=== PATIENT | female | born 1970 | race African-American/Black ===

== ENCOUNTER 2017-04-05 03:49 | Emergency (ER) | payer SELFPAY ==
[~2017-04-05] VITALS: Ht 167.6 cm; Wt 80.0 kg
[~2017-04-05 03:49] MED LIST: DEPA500T3 PO; DICL75 PO; [UNRECOGNIZED DRUG - CODE] IM
[2017-04-05 03:50] VITALS: BP 138/66; PULSE 78; RESP 16; TEMP 99.2; O2SAT 100
--- NOTE | 2017-04-05 04:24 | PD ---
HPI Chief Complaint: Chest Pain Time Seen by Provider: 03:54 Travel History International Travel<30 days: No Contact w/Intl Traveler<30days: No Traveled to known affect area: No History of Present Illness HPI The patient is a 46 year old female who presents to the [facility] emergency department with a history of left chest pain that she reports began 2 hours ago while she was at work. She reports the pain is sharp and constant. She denies having any trauma or injury to the area. She reports that the area of tenderness is over a lump in her breast. She reports that she's had that lump in her breast for years. She reports that it has grown with time. She reports that it was benign, however she denies having a biopsy. She reports that she last had a mammogram done of the left breast 5 years ago. She denies having any fevers or chills, cough or congestion. She denies having any diaphoresis, nausea vomiting, or shortness of breath. She denies having a primary care physician. She reports that she is uninsured and that's why she has not followed up to have another mammogram done. On review of systems otherwise, the patient denies having any night sweats, unexplained weight loss, neck pain, abdominal pain, diarrhea, urinary symptoms, or neurologic symptoms. LMP: End of February. COUNT INCLUDES THE [facility] Past Medical History Narrative Medical The patient's past medical history is significant for depression, asthma, polycystic kidney disease. Asthma: Yes Bipolar Disorder: Yes Anxiety: Yes Depression: Yes Diminished Hearing: No Genitourinary: Yes (POLYCYSTIC KIDNEY DISEASE) Psychiatric: Yes (DEPRESSION) Respiratory: Yes (ASTHMA) Schizophrenia: Yes Tetanus Vaccination: Unknown ?: Not LMP: 03-29-17 Menopausal: No : 3 Para: 4 : 1 Tubal Ligation: Yes Past Surgical History Narrative Surgical The patient's past surgical history is significant for bilateral tubal ligation. Surgical History: No Previous Surgery Social History Alcohol Use: No Tobacco Use: Yes (one half pack per day) Substance Use: No Allergies-Medications (Allergen,Severity, Reaction): Coded Allergies: No Known Allergies (Verified , 04/05/17) Reported Meds & Prescriptions Reported Meds & Active Scripts Active Reported Girma Nogueira Pre-filled DCS (Aripiprazole) 300 Mg Inj 300 Mg IM Q30D *For intramuscular use only* Review of Systems Except as stated in HPI: all other systems reviewed are Neg General / Constitutional: No: Fever Eyes: No: Visual changes HENT: No: Headaches Cardiovascular: No: Chest Pain or Discomfort Respiratory: No: Shortness of Breath Gastrointestinal: No: Nausea, Vomiting, Diarrhea, Abdominal Pain Genitourinary: No: Dysuria Musculoskeletal: No: Pain Skin: No Rash Neurologic: No: Weakness Psychiatric: No: Depression Endocrine: No: Polydipsia Hematologic/Lymphatic: No: Easy Bruising Physical Exam Narrative General: The patient is well-developed well-nourished female in no acute distress. Head and Neck exam: Head is normocephalic atraumatic. Eyes: EOMI, pupils are equal round and reactive to light. Nose: Midline septum with pink mucous membranes Mouth: Dentition unremarkable. Moist mucus membranes. Posterior oropharynx is not erythematous. No tonsillar hypertrophy. Uvula midline. Airway patent. Neck: No palpable lymphadenopathy. No nuchal rigidity. No thyromegaly. Cardiovascular: Regular rate and rhythm without murmurs, gallops, or rubs. No pulse deficit to the extremities and simultaneous auscultation and palpation of her radial artery. Breast examination: The patient is noted on examination of the right breast to have no masses, no nipple discharge, orange peel quality to the skin, or nipple inversion. The patient on examination of her left breast is noted to have at approximately 12 to 3 o'clock position a 6 x 6 cm mass that is freely mobile and tender to palpation. There is no overlying erythema, edema, pointing, or other rash. The patient has no axillary lymphadenopathy. The patient has no nipple discharge, nipple inversion, orange peel quality to the skin. Lungs: Clear to auscultation bilaterally. No wheezes, rhonchi, or rales. Abdomen: Soft, without tenderness to palpation in all 4 quadrants of the abdomen. No guarding, rebound, or rigidity. Normal bowel sounds are audible. No tenderness on palpation of McBurney's point. Extremities: No clubbing, cyanosis, or edema. 2+ pulses in all 4 extremities. Back: No costovertebral angle tenderness to palpation. Neurologic Exam: Grossly nonfocal. Skin Exam: No rash noted. Intact skin that is warm and dry. Data Data Last Documented VS Vital Signs Date Time Temp Pulse Resp B/P (MAP) Pulse Ox O2 Delivery O2 Flow Rate FiO2 04/05/17 04:25 100 Nasal Cannula 2.00 04/05/17 03:50 99.2 78 16 Orders Orders Mandatory Outpatient Referral (04/05/17 04:08) Electrocardiogram (04/05/17 04:08) Complete Blood Count With Diff (04/05/17 04:08) Basic Metabolic Panel (Bmp) (04/05/17 04:08) Creatine Kinase (Cpk) (04/05/17 04:08) Ckmb (Isoenzyme) Profile (04/05/17 04:08) Troponin I (04/05/17 04:08) C-Reactive Protein (Crp) (04/05/17 04:08) Chest, Single Ap (04/05/17 04:08) Iv Access Insert/Monitor (04/05/17 04:08) Ecg Monitoring (04/05/17 04:08) Oximetry (04/05/17 04:08) CKMB (04/05/17 04:20) CKMB% (04/05/17 04:20) Us Breast Unilateral (04/05/17 04:54) Sodium Chlor 0.9% 1000 Ml Inj (Ns 1000 M (04/05/17 06:00) Ketorolac Inj (Toradol Inj) (04/05/17 06:00) Labs Laboratory Tests Test 04/05/17 04:20 White Blood Count 9.9 TH/MM3 Red Blood Count 4.01 MIL/MM3 Hemoglobin 10.6 GM/DL Hematocrit 31.8 % Mean Corpuscular Volume 79.3 FL Mean Corpuscular Hemoglobin 26.5 PG Mean Corpuscular Hemoglobin Concent 33.5 % Red Cell Distribution Width 19.1 % Platelet Count 231 TH/MM3 Mean Platelet Volume 9.9 FL Neutrophils (%) (Auto) 68.3 % Lymphocytes (%) (Auto) 26.7 % Monocytes (%) (Auto) 4.3 % Eosinophils (%) (Auto) 0.1 % Basophils (%) (Auto) 0.6 % Neutrophils # (Auto) 6.8 TH/MM3 Lymphocytes # (Auto) 2.7 TH/MM3 Monocytes # (Auto) 0.4 TH/MM3 Eosinophils # (Auto) 0.0 TH/MM3 Basophils # (Auto) 0.1 TH/MM3 CBC Comment DIFF FINAL Differential Comment Blood Urea Nitrogen 13 MG/DL Creatinine 0.92 MG/DL Random Glucose 95 MG/DL Calcium Level 8.4 MG/DL Sodium Level 137 MEQ/L Potassium Level 4.0 MEQ/L Chloride Level 105 MEQ/L Carbon Dioxide Level 26.4 MEQ/L Anion Gap 6 MEQ/L Estimat Glomerular Filtration Rate 80 ML/MIN Total Creatine Kinase 914 U/L Creatine Kinase MB 9.3 NG/ML Creatine Kinase MB % 1.0 % Troponin I LESS THAN 0.02 NG/ML C-Reactive Protein 0.42 MG/DL MDM Medical Decision Making Medical Screen Exam Complete: Yes Emergency Medical Condition: Yes Medical Record Reviewed: Yes Interpretation(s) Last Impressions Breast Ultrasound 04/05/17 0454 Signed Impressions: Service Date/Time: March 04:42 - CONCLUSION: 1. Apparent 3.2 x 4.2 x 2.4 cm simple appearing macrocyst in the 1: 2. 00 position of the left breast. Braulio Chou MD Chest X-Ray 04/05/17 0408 Signed Impressions: Service Date/Time: March 04:36 - CONCLUSION: 1. No acute cardiopulmonary disease. Braulio Chou MD Differential Diagnosis Fibroadenoma, versus breast cancer, versus abscess, versus breast cyst Narrative Course During the course of the patients emergency department visit, the patients history, examination, and differential diagnosis were reviewed with the patient. The patient had IV access obtained and blood work sent for analysis. The patient was placed on a steel loader with oximetry and blood pressure monitoring. An ECG was done on arrival. The patient's ECG reveals a sinus rhythm heart rate of 78, no acute ST segment elevation or depression, QRS duration is 86 ms, QTC 429 ms. The patient was initially provided Toradol 15 mg IV for pain and normal saline 1 L IV fluid bolus. The patients laboratory studies were reviewed and remarkable for a white count of 9.9, hemoglobin 10.6, platelets 231 with a normal differential. CMP is remarkable for GFR of 80, calcium 8.4, CPK 914, CK-MB 1.0, troponin I less than 0.02, C-reactive protein 0.42. Radiology studies were reviewed and remarkable for an ultrasound of the breast reveals an apparent 3 x 2 x 4.2 x 2.4 simple appearing macrocystic in the 2 o' clock position of the left breast. Chest x-ray shows no acute cardiopulmonary disease. The patient will be discharged home with a mandatory follow-up with the breast clinic. The patient was given an outpatient lab slip for a mammogram. There are no signs of infection. The patient was instructed regarding the importance of staying well-hydrated. The patient is resting comfortably and feels better, is alert and in no distress. The patients results and examination findings were discussed with the patient. The repeat examination is unremarkable and benign. The history, exam, diagnostic testing, and current condition do not suggest any significant pathology to warrant further testing, continued ED treatment, admission, or surgical evaluation at this point. The vital signs have been stable. The patient does not have uncontrollable pain, intractable vomiting, or other significant symptoms. The patient's condition is stable and appropriate for discharge. The patient will pursue further outpatient evaluation with a primary care physician or other designated or consulting physician as indicated in the discharge instructions. The patient expressed understanding and was agreeable with this plan. Diagnosis Primary Impression: Cyst of left breast Additional Impression: Breast tenderness in female Referrals: Jaiden Mock MD [facility] Patient Instructions: Breast Mass (ED), General Instructions Med/Other Pt SpecificInfo: No Change to Meds Disposition: 01 DISCHARGE HOME Condition: Stable Radha Eckert MD Apr 05, 2017 04:24
[2017-04-05 04:25] VITALS: O2SAT 100
[2017-04-05 04:36] LABS: AUTOMATED NEUTROPHIL # 6.8 TH/MM3 (1.8-7.7); BASOPHIL # 0.1 TH/MM3 (0-0.2); BASOPHIL % 0.6 % (0.0-2.0); EOSINOPHIL % 0.1 % (0.0-4.0); HEMATOCRIT 31.8 % (35.0-46.0); HEMO FLAGS DIFF FINAL; LYMPH % 26.7 % (9.0-44.0); LYMPHOCYTE # 2.7 TH/MM3 (1.0-4.8); MEAN CELL VOLUME 79.3 FL (80.0-100.0); MEAN CORPUSCULAR HEMOGLOBIN 26.5 PG (27.0-34.0); MEAN CORPUSCULAR HGB CONC 33.5 % (32.0-36.0); MONO % 4.3 % (0.0-8.0); NEUT % 68.3 % (16.0-70.0); PLATELET COUNT 231 TH/MM3 (150-450); RED BLOOD COUNT 4.01 MIL/MM3 (4.00-5.30); RED CELL DISTRIBUTION WIDTH 19.1 % (11.6-17.2); WHITE BLOOD COUNT 9.9 TH/MM3 (4.0-11.0)
--- NOTE | 2017-04-05 04:43 | RADRPT ---
EXAM DATE/TIME: 04/05/2017 04:36 [facility] COMPARISON: CHEST SINGLE AP, February 26, 2016, 19:16. INDICATIONS : Chest pain. MEDICAL HISTORY : None. SURGICAL HISTORY : None. ENCOUNTER: Initial ACUITY: 1 day PAIN SCORE: 7/10 LOCATION: Bilateral chest FINDINGS: A single view of the chest demonstrates the lungs to be symmetrically aerated without evidence of mas s, infiltrate or effusion. The cardiomediastinal contours are unremarkable. Osseous structures are intact. CONCLUSION: 1. No acute cardiopulmonary disease. Braulio Chou MD on April 05, 2017 at 4:40 Board Certified Radiologist. This report was verified electronically.
[2017-04-05 04:52] LABS: ANION GAP 6 MEQ/L (5-15); BICARBONATE 26.4 MEQ/L (21.0-32.0); BLOOD UREA NITROGEN 13 MG/DL (7-18); CHLORIDE 105 MEQ/L (98-107); GLOMERULAR FILTRATION RATE 80 ML/MIN (>89); SODIUM (NA) 137 MEQ/L (136-145)
[2017-04-05 04:56] LABS: CREATINE KINASE 914 U/L (26-192)
--- NOTE | 2017-04-05 05:05 | RADRPT ---
EXAM DATE/TIME: 04/05/2017 04:42 [facility] COMPARISON: No previous studies available for comparison. INDICATIONS : Left breast pain. MEDICAL HISTORY : Left breast pain. SURGICAL HISTORY : Tubal ligation. ENCOUNTER: Initial ACUITY: 1 day PAIN SCORE: 8/10 LOCATION: Left breast. FINDINGS: There is an anechoic well-circumscribed cystic lesion with smooth theodore in the 1: 00 position of the left breast. This measures 3.2 x 4.2 x 2.4 cm. No significant associated hyperemia or nodule or vascularity. CONCLUSION: 1. Apparent 3.2 x 4.2 x 2.4 cm simple appearing macrocyst in the 1: 2. 00 position of the left breast. Braulio Chou MD on April 05, 2017 at 5:00 Board Certified Radiologist. This report was verified electronically.
[2017-04-05 05:09] LABS: CKMB 9.3 NG/ML (0.5-3.6)
[2017-04-05] MEDS ORDERED: KETOROLAC TROMETHAMINE 30 MG/ML (IVP) VIAL IV PUSH ONE (06:00)
[2017-04-05] MEDS ORDERED: SODIUM CHLOR 0.9% 1000 ML INJ 1,000 ML IV ONE (06:00)
--- NOTE | 2017-04-05 12:46 | EKG ---
Date Performed: 04/05/2017 Time Performed: 04:06:40 PTAGE: 46 years EKG: Sinus rhythm NORMAL ECG PREVIOUS TRACING : 02/26/2016 19.28 DOCTOR: Adan Palafox Interpretating Date/Time 04/05/2017 12:43:39
== END 2017-04-05 08:19 | disposition home or self-care (01) ==
LOC: NEPC 03:49
DX: N60.02 Solitary cyst of left breast (principal); N64.4 Mastodynia; F17.200 Nicotine dependence, unspecified, uncomplicated; Z87.09 Personal history of other diseases of the respiratory system; Z86.59 Personal history of other mental and behavioral disorders; Z87.448 Personal history of other diseases of urinary system
CPT/HCPCS: 71010; 76642; 80048; 82550; 82552; 84484; 85025; 86140; 93005; 96374; 99285; J1885; J7030

== ENCOUNTER 2017-06-27 16:02 | Emergency (ER) | payer SELFPAY ==
[~2017-06-27] VITALS: Ht 165.1 cm; Wt 72.7 kg
[~2017-06-27 16:02] MED LIST changes: -DEPA500T3 PO; -DICL75 PO
[2017-06-27 16:03] VITALS: BP 110/58; PULSE 73; RESP 16; TEMP 99; O2SAT 97
[2017-06-27 16:57] LABS: AUTOMATED NEUTROPHIL # 10.4 TH/MM3 (1.8-7.7); BASOPHIL # 0.1 TH/MM3 (0-0.2); BASOPHIL % 0.4 % (0.0-2.0); EOSINOPHIL # 0.1 TH/MM3 (0-0.4); EOSINOPHIL % 0.5 % (0.0-4.0); HEMATOCRIT 32.5 % (35.0-46.0); HEMO FLAGS DIFF FINAL; LYMPH % 16.7 % (9.0-44.0); LYMPHOCYTE # 2.3 TH/MM3 (1.0-4.8); MEAN CELL VOLUME 80.1 FL (80.0-100.0); MEAN CORPUSCULAR HEMOGLOBIN 26.1 PG (27.0-34.0); MEAN CORPUSCULAR HGB CONC 32.6 % (32.0-36.0); MONO % 6.9 % (0.0-8.0); NEUT % 75.5 % (16.0-70.0); PLATELET COUNT 254 TH/MM3 (150-450); RED BLOOD COUNT 4.06 MIL/MM3 (4.00-5.30); RED CELL DISTRIBUTION WIDTH 19.8 % (11.6-17.2); WHITE BLOOD COUNT 13.7 TH/MM3 (4.0-11.0)
[2017-06-27 17:11] LABS: APTT (PATIENT) 24.9 SEC (24.3-30.1); INTERNATIONAL NORMALIZED RATIO 0.9 RATIO; PROTHROMBIN TIME - PATIENT 10.3 SEC (9.8-11.6)
[2017-06-27 17:12] LABS: MAGNESIUM 2.1 MG/DL (1.5-2.5)
--- NOTE | 2017-06-27 17:16 | RADRPT ---
EXAM DATE/TIME: 06/27/2017 16:56 [facility] COMPARISON: CHEST SINGLE AP, April 05, 2017, 4:36. INDICATIONS : Dizziness and low blood pressure MEDICAL HISTORY : None. SURGICAL HISTORY : None. ENCOUNTER: Initial ACUITY: 1 day PAIN SCORE: 0/10 LOCATION: chest FINDINGS: PA and lateral views of the chest demonstrate the lungs to be symmetrically aerated without evidence of mass, infiltrate or effusion. The cardiomediastinal contours are unremarkable. Osseous structure s are intact. CONCLUSION: 1. No acute cardiopulmonary findings. Sahil Hampton MD on June 27, 2017 at 17:11 Board Certified Radiologist. This report was verified electronically.
[2017-06-27 17:21] LABS: POTASSIUM 4.1 MEQ/L (3.5-5.1)
--- NOTE | 2017-06-27 18:39 | PD ---
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 Said she felt sweaty but felt better after sitting down. Has been having a few days of nonbloody diarrhea. Had fever 2 or 3 days ago. Denies any chest pain, sob, n/v, abdominal pain, focal weakness or numbness. PFSH Past Medical History Medical History: Denies Significant Hx Asthma: Yes Bipolar Disorder: Yes Anxiety: Yes Depression: Yes Diminished Hearing: No Genitourinary: Yes (POLYCYSTIC KIDNEY DISEASE) Psychiatric: Yes (DEPRESSION) Respiratory: Yes (ASTHMA) Schizophrenia: Yes ?: Not Menopausal: No : 3 Para: 4 : 1 Tubal Ligation: Yes Past Surgical History Surgical History: No Previous Surgery Social History Alcohol Use: No Tobacco Use: No Substance Use: No Allergies-Medications (Allergen,Severity, Reaction): Coded Allergies: No Known Allergies (Verified , 04/05/17) Reported Meds & Prescriptions Reported Meds & Active Scripts Active Reported Abilifclay Maintena Pre-filled DCS (Aripiprazole) 300 Mg Inj 300 Mg IM Q30D *For intramuscular use only* Review of Systems Except as stated in HPI: all other systems reviewed are Neg Physical Exam Narrative GENERAL: 46yo F not in distress. SKIN: Focused skin assessment warm/dry. HEAD: Atraumatic. Normocephalic. EYES: Pupils equal and round. EOMI. ENT: No nasal bleeding or discharge. Mucous membranes pink and moist. NECK: Trachea midline. No JVD. CARDIOVASCULAR: Regular rate and rhythm. No murmur appreciated. RESPIRATORY: No accessory muscle use. Clear to auscultation. Breath sounds equal bilaterally. GASTROINTESTINAL: Abdomen soft, non-tender, nondistended. MUSCULOSKELETAL: No obvious deformities. No clubbing. No cyanosis. No edema. NEUROLOGICAL: Awake and alert. No obvious cranial nerve deficits. Motor grossly within normal limits. Normal speech. PSYCHIATRIC: Appropriate mood and affect; insight and judgment normal. Data Data Last Documented VS Vital Signs Date Time Temp Pulse Resp B/P (MAP) Pulse Ox O2 Delivery O2 Flow Rate FiO2 06/27/17 19:31 67 16 131/69 (89) 80 123/67 (85) 83 123/68 (86) 06/27/17 17:52 Room Air 06/27/17 16:03 99.0 97 Orders Orders Electrocardiogram (06/27/17 16:19) Basic Metabolic Panel (Bmp) (06/27/17 16:19) Ed Urine Pregnancytest Poc (06/27/17 16:19) Complete Blood Count With Diff (06/27/17 16:19) Magnesium (Mg) (06/27/17 16:19) Act Partial Throm Time (Ptt) (06/27/17 16:19) Prothrombin Time / Inr (Pt) (06/27/17 16:19) Urinalysis - C+S If Indicated (06/27/17 16:19) Chest, Pa & Lat (06/27/17 16:19) Orthostatic Vital Signs (06/27/17 18:36) Sodium Chlor 0.9% 1000 Ml Inj (Ns 1000 M (06/27/17 18:45) Urine Culture (06/27/17 18:50) Nitrofurantoin Monohyd Macrocr (Macrobid (06/27/17 20:00) Labs Laboratory Tests Test 06/27/17 16:35 06/27/17 18:50 White Blood Count 13.7 TH/MM3 Red Blood Count 4.06 MIL/MM3 Hemoglobin 10.6 GM/DL Hematocrit 32.5 % Mean Corpuscular Volume 80.1 FL Mean Corpuscular Hemoglobin 26.1 PG Mean Corpuscular Hemoglobin Concent 32.6 % Red Cell Distribution Width 19.8 % Platelet Count 254 TH/MM3 Mean Platelet Volume 9.5 FL Neutrophils (%) (Auto) 75.5 % Lymphocytes (%) (Auto) 16.7 % Monocytes (%) (Auto) 6.9 % Eosinophils (%) (Auto) 0.5 % Basophils (%) (Auto) 0.4 % Neutrophils # (Auto) 10.4 TH/MM3 Lymphocytes # (Auto) 2.3 TH/MM3 Monocytes # (Auto) 0.9 TH/MM3 Eosinophils # (Auto) 0.1 TH/MM3 Basophils # (Auto) 0.1 TH/MM3 CBC Comment DIFF FINAL Differential Comment Prothrombin Time 10.3 SEC Prothromb Time International Ratio 0.9 RATIO Activated Partial Thromboplast Time 24.9 SEC Blood Urea Nitrogen 14 MG/DL Creatinine 0.98 MG/DL Random Glucose 121 MG/DL Calcium Level 8.9 MG/DL Magnesium Level 2.1 MG/DL Sodium Level 138 MEQ/L Potassium Level 4.1 MEQ/L Chloride Level 105 MEQ/L Carbon Dioxide Level 26.0 MEQ/L Anion Gap 7 MEQ/L Estimat Glomerular Filtration Rate 74 ML/MIN Urine Color YELLOW Urine Turbidity HAZY Urine pH 5.5 Urine Specific [place] 1.016 Urine Protein TRACE mg/dL Urine Glucose (UA) NEG mg/dL Urine Ketones NEG mg/dL Urine Occult Blood MOD Urine Nitrite NEG Urine Bilirubin NEG Urine Urobilinogen LESS THAN 2.0 MG/DL Urine Leukocyte Esterase MOD Urine RBC 1 /hpf Urine WBC 4 /hpf Urine Squamous Epithelial Cells 14 /hpf Urine Amorphous Sediment RARE Urine Bacteria MANY /hpf Urine Mucus MANY /lpf Microscopic Urinalysis Comment CULTURE INDICATED MDM Medical Decision Making Medical Screen Exam Complete: Yes Emergency Medical Condition: Yes Interpretation(s) EKG: NSR 71bpm. Normal axis. No ST segment elevation or depression. Differential Diagnosis Vasovagal near syncope vs. electrolyte abnormality vs. hypoglycemia vs. dehydration Narrative Course 46yo F with episode of lightheadedness that has resolved. Pt has been having a few days of diarrhea. Labs reviewed, mild leukocytosis at 13.7. H/H low at 10.6/32.5 but this is her baseline. BMP unremarkable. UA showed moderate leukocyte. Positive squamous cell so may be contaminated. Culture indicated. However, pt does have leukocytosis, will cover with antibiotics. Given first dose of macrobid. Urine negative. Orthostatic negative. Pt did not want IVF and is tolerating PO. States she has no symptoms now and wants to go home. Return precautions given. Diagnosis Primary Impression: UTI (urinary tract infection) Qualified Codes: N39.0 - Urinary tract infection, site not specified; R31.9 - Hematuria, unspecified Patient Instructions: General Instructions Departure Forms: Tests/Procedures Additional Instructions: Please follow up with your primary care physician in 2-3 days. Return to the ED if symptoms worsen. Med/Other Pt SpecificInfo: Prescription(s) given Scripts Nitrofurantoin Monohydrate Macrocrystals (Macrobid) 100 Mg Cap 100 MG PO BID for Infection for 5 Days, #10 CAP 0 Refills Prov: Blank Boyer DO 06/27/17 Disposition: 01 DISCHARGE HOME Condition: Stable Blank Boyer DO Jun 27, 2017 18:39
[2017-06-27] MEDS ORDERED: SODIUM CHLOR 0.9% 1000 ML INJ 1,000 ML IV ONE (18:45)
[2017-06-27 19:31] VITALS: BP_SYST 123; BP_SYST 131; BP_DIAS 67; BP_DIAS 68; BP_DIAS 69; RESP 16
[2017-06-27 19:33] LABS: BACTERIA, URINE MANY /hpf; BLOOD, URINE MOD (NEG); COMMENT (UR) CULTURE INDICATED; CULTURE IF INDICATED CULTURE INDICATED; GLUCOSE,URINE NEG (NEG); KETONE, URINE NEG (NEG); MUCUS URINE MANY /lpf (OCC); NITRITE,URINE NEG (NEG); PH, URINE 5.5 (5.0-8.5); SQUAMOUS EPITHELIAL CELL URINE 14 /hpf (0-5); URINE COLOR YELLOW (YELLW/STRAW)
[2017-06-27] MEDS ORDERED: NITROFURANTOIN MONOHYD MACROCR 100 MG CAP PO ONE (20:00)
[2017-06-27] MEDS ORDERED: MACR100C2 PO (20:16)
--- NOTE | 2017-06-28 16:03 | EKG ---
Date Performed: 06/27/2017 Time Performed: 18:32:37 PTAGE: 46 years EKG: Sinus rhythm WITH SINUS ARRHYTHMIA NORMAL ECG Since PREVIOUS TRACING , no significant change noted PREVIOUS TRACIN04/05/2017 04.06.40 DOCTOR: Nestor Salinas Interpretating Date/Time 06/28/2017 16:02:14
== END 2017-06-27 20:21 | disposition home or self-care (01) ==
LOC: NEPD 16:02
DX: N39.0 Urinary tract infection, site not specified (principal); B96.89 Other specified bacterial agents as the cause of diseases classified elsewhere; R42 Dizziness and giddiness; R19.7 Diarrhea, unspecified; D72.829 Elevated white blood cell count, unspecified; I49.8 Other specified cardiac arrhythmias; J45.909 Unspecified asthma, uncomplicated; F31.9 Bipolar disorder, unspecified; Q61.3 Polycystic kidney, unspecified
CPT/HCPCS: 71020; 80048; 81001; 83735; 84703; 85025; 85610; 85730; 87086; 93005; 99285

== ENCOUNTER 2018-01-22 03:28 | Emergency (ER) | payer SELFPAY ==
[~2018-01-22] VITALS: Ht 157.5 cm; Wt 72.0 kg
[~2018-01-22 03:28] MED LIST changes: +MACR100C2 PO
[2018-01-22 03:40] VITALS: BP 128/74; PULSE 96; RESP 16; TEMP 99; O2SAT 99
[2018-01-22] MEDS ORDERED: ARIP300I IM (03:51)
[2018-01-22] MEDS ORDERED: KETOROLAC TROMETHAMINE 60 MG/2 ML (IM) VIAL IM ONE (04:30)
[2018-01-22] MEDS ORDERED: ORPHENADRINE INJ 60 MG/2 ML AMP IM ONE (04:30)
--- NOTE | 2018-01-22 04:33 | PD ---
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 Patient states that the pain is worse when she bends and moves. She some relief with remaining still. She denies any acute bowel or bladder changes. No prior injury. PFS Past Medical History Narrative Medical Asthma, schizoaffective disorder Asthma: Yes Bipolar Disorder: Yes Anxiety: Yes Depression: Yes Diminished Hearing: No Genitourinary: Yes (POLYCYSTIC KIDNEY DISEASE) Psychiatric: Yes (DEPRESSION) Respiratory: Yes (ASTHMA) Immunizations Current: Yes Schizophrenia: Yes Tetanus Vaccination: > 5 Years Influenza Vaccination: Yes ?: Not Menopausal: No : 3 Para: 4 : 1 Tubal Ligation: Yes Past Surgical History Surgical History: No Previous Surgery Social History Alcohol Use: No Tobacco Use: No Substance Use: No Allergies-Medications (Allergen,Severity, Reaction): Coded Allergies: No Known Allergies (Verified Adverse Reaction, Unknown, 01/22/18) Reported Meds & Prescriptions Reported Meds & Active Scripts Active Reported Abilify Maintena ER Inj (Aripiprazole) 300 Mg Susp 300 Mg IM Q28D Review of Systems Except as stated in HPI: all other systems reviewed are Neg Physical Exam Narrative GENERAL: Well-developed, well-nourished in no acute distress. Nontoxic appearing. HEAD: Normocephalic, atraumatic. EYES: Pupils equal round and reactive. Extraocular motions intact. No scleral icterus. No injection or drainage. ENT: TMs clear without erythema. The external auditory canals clear. Nose: clear . Posterior pharynx is pink and moist. No tonsillar edema or exudate. Uvula midline. Airway patent. NECK: Trachea midline.Supple, nontender, moves head freely. No central bony tenderness or spasm. CARDIOVASCULAR: Regular rate and rhythm without murmurs, gallops, or rubs. RESPIRATORY: Clear to auscultation. Breath sounds equal bilaterally. No wheezes , rales, or rhonchi. GASTROINTESTINAL: Abdomen soft, non-tender, nondistended. No hepato-splenomegaly , or palpable masses. No guarding. EXTREMITIES: No clubbing, cyanosis, or edema. No joint tenderness, effusion, or edema noted. BACK: No central bony tenderness to palpation of dorsal lumbar spine. Patient complains of bilateral lower lumbar tenderness. Without deformity or crepitance. No flank tenderness. No gross spasm. Able to heel and toe stand. Bends forward to 70. No saddle anesthesia. Data Data Last Documented VS Vital Signs Date Time Temp Pulse Resp B/P (MAP) Pulse Ox O2 Delivery O2 Flow Rate FiO2 01/22/18 03:40 99.0 96 16 128/74 (92) 99 Orders Orders Ketorolac Inj (Toradol Inj) (01/22/18 04:30) Orphenadrine Inj (Norflex Inj) (01/22/18 04:30) MDM Medical Decision Making Medical Screen Exam Complete: Yes Emergency Medical Condition: Yes Medical Record Reviewed: Yes Differential Diagnosis MDM: High Differential diagnoses: AAA,Fracture, sprain, strain, HNP, nerve or vascular injury, epidural abscess, pilonidal cyst, pyelonephritis, UTI, nephrolithiasis, ureterolithiasis Narrative Course Patient is given Toradol 60 and Norflex 60 mg IM. This is acute lumbar strain Diagnosis Primary Impression: Acute lumbar strain Patient Instructions: General Instructions Departure Forms: Tests/Procedures, Work Release Special Instructions: No work 2 days. Additional Instructions: Rest. Ice for the next 3 days followed by heat . Flexeril and Voltaren. Follow-up with a primary care doctor in one week. Return to the ER for emergencies. Med/Other Pt SpecificInfo: Prescription(s) given Disposition: 01 DISCHARGE HOME Condition: Stable Juancho Muñoz Jan 22, 2018 04:33
[2018-01-22] MEDS ORDERED: DICL75TA PO (04:34)
[2018-01-22] MEDS ORDERED: CYCL10TA PO (04:34)
== END 2018-01-22 05:16 | disposition home or self-care (01) ==
LOC: NEPD 03:28
DX: S39.012A Strain of muscle, fascia and tendon of lower back, initial encounter (principal); X58.XXXA Exposure to other specified factors, initial encounter; Y93.F9 Activity, other caregiving; Y92.129 Unspecified place in nursing home as the place of occurrence of the external cause; Y99.0 Civilian activity done for income or pay; F25.9 Schizoaffective disorder, unspecified; F31.9 Bipolar disorder, unspecified; F41.8 Other specified anxiety disorders; Z87.09 Personal history of other diseases of the respiratory system; Z87.448 Personal history of other diseases of urinary system
CPT/HCPCS: 96372; 99283; J1885; J2360